=== PATIENT | female | born 1945 | race Caucasian/White ===

== ENCOUNTER → 2017-04-01 | Outpatient (CLI) | payer MEDICARE ==
[2017-04-01 18:07] LABS: Bilirubin, Urine Neg (Neg); Blood, Urine Neg (Neg); Glucose Qualitative, Urine Neg (Neg); Ketones, Urine 1+ (Neg); Leukocyte Esterase, Urine 1+ (Neg); Nitrite, Urine Neg (Neg); Protein, Urine Neg (Neg); Urobilinogen, Urine 1+ (Normal)
[2017-04-01 18:39] LABS: Appearance, Urine Hazy (Clear); Color, Urine Yellow (P-Yellow)
[2017-04-01 18:41] LABS: Bacteria Few /hpf; Calcium Oxalate Crystals Mod /hpf; Red Blood Cells, Urine Not Seen /hpf (0-2); Squamous Epithelial Cells Few /hpf (Few); White Blood Cells, Urine 0-2 /hpf (0-5)
[2017-04-01 20:47] LABS: Protein, Urine Random 15.7 mg/dL (0.0-11.9)
== END | disposition home or self-care (01) ==
LOC: LAB 09:00
PROVIDERS: Internal Medicine
DX: E55.9 Vitamin D deficiency, unspecified (principal); I12.9 Hypertensive chronic kidney disease with stage 1 through stage 4 chronic kidney disease, or unspecified chronic kidney disease; N18.3 Chronic kidney disease, stage 3 (moderate); D63.1 Anemia in chronic kidney disease
CPT/HCPCS: 81001; 82570; 84156

== ENCOUNTER 2019-02-25 20:58 | Emergency (ER) | payer MEDICARE ==
[~2019-02-25] VITALS: Ht 142.2 cm; Wt 59.0 kg
[2019-02-25 21:58] LABS: BASOPHILS ABSOLUTE AUTO 0.04 K/mm3 (0.00-0.23); BASOPHILS PERCENT AUTO 0 % (0-2); EOSINOPHILS ABSOLUTE AUTO 0.21 K/mm3 (0.00-0.68); EOSINOPHILS PERCENT AUTO 2 % (0-6); Hematocrit 39.3 % (33.0-51.0); Hemoglobin 13.1 g/dL (11.5-16.0); IMMATURE GRAN ABSOLUTE AUTO 0.03 K/mm3 (0.00-0.10); IMMATURE GRAN PERCENT AUTO 0 % (0-1); LYMPHOCYTES ABSOLUTE AUTO 2.45 K/mm3 (0.84-5.20); LYMPHOCYTES PERCENT AUTO 19 % (21-46); MONOCYTES ABSOLUTE AUTO 0.95 K/mm3 (0.16-1.47); MONOCYTES PERCENT AUTO 8 % (4-13); Mean Corpuscular HGB 32.9 pg (26.0-34.0); Mean Corpuscular HGB Conc 33.3 g/dL (31.5-36.5); Mean Corpuscular Volume 99 fL (80-100); Mean Platelet Volume 9.3 fL (9.1-12.4); NEUTROPHILS ABSOLUTE AUTO 9.07 K/mm3 (1.96-9.15); NEUTROPHILS PERCENT AUTO 71 % (41-73); Platelet Count 334 K/mm3 (150-400); RDW Coefficient Variation 14.1 % (11.7-14.2); RDW Standard Deviation 51.4 fL (35.1-46.3); Red Blood Cell Count 3.98 M/mm3 (3.80-5.20); White Blood Cell Count 12.75 K/mm3 (4.00-11.30)
[2019-02-25 22:16] LABS: Albumin, Blood 3.3 g/dL (3.4-5.0); Albumin/Globulin Ratio 0.8 (0.8-1.8); Bilirubin, Total 0.3 mg/dL (0.1-1.0); Bun/Creatinine Ratio 18.6 (12.0-20.0); Calcium, Blood 9.1 mg/dL (8.5-10.1); Creatinine, Blood 1.56 mg/dL (0.40-1.00); Globulin, Blood 4.3 g/dL (2.2-4.0); Potassium, Blood 3.7 mmol/L (3.5-5.5); Total Protein, Blood 7.6 g/dL (6.4-8.2)
[2019-02-25 22:41] LABS: Magnesium, Blood 2.2 mg/dL (1.6-2.4); Troponin I 0.052 ng/mL (0.000-0.040)
[2019-02-25] MEDS ORDERED: BUMETANIDE TAB 1MG (23:07)
[2019-02-25] MEDS ORDERED: CARVEDILOL6.25 MG PO (23:07)
[2019-02-25] MEDS ORDERED: FERSU300 (23:07)
[2019-02-25] MEDS ORDERED: Spironolactone25 MG PO (23:07)
[2019-02-25] MEDS ORDERED: WARF1 PO (23:07)
[2019-02-25] MEDS ORDERED: Simvastatin40 MG PO (23:07)
[2019-02-25 23:09] LABS: Source, Urine Clean Catch
[2019-02-25 23:16] LABS: Bilirubin, Urine Neg (Neg); Blood, Urine Neg (Neg); Glucose Qualitative, Urine Neg (Neg); Ketones, Urine Neg (Neg); Leukocyte Esterase, Urine 1+ (Neg); Nitrite, Urine Neg (Neg); Protein, Urine Neg (Neg); Urobilinogen, Urine NORM (Normal)
[2019-02-25 23:23] LABS: Appearance, Urine Clear (Clear); Color, Urine Yellow (P-Yellow)
[2019-02-25 23:24] LABS: Bacteria Rare /hpf; Red Blood Cells, Urine Not Seen /hpf (0-2); Squamous Epithelial Cells Few /hpf (Few); White Blood Cells, Urine 0-2 /hpf (0-5)
== END 2019-02-26 01:34 | disposition home or self-care (01) ==
LOC: ER 20:58
PROVIDERS: Emergency Medicine; Physician Assistant
DX: M54.5 Low back pain (principal); M25.552 Pain in left hip; M25.551 Pain in right hip; R07.81 Pleurodynia; I50.9 Heart failure, unspecified; N18.3 Chronic kidney disease, stage 3 (moderate); Z79.899 Other long term (current) drug therapy
CPT/HCPCS: 36415; 71045; 73502; 80053; 81001; 83605; 83735; 83880; 84484; 85025; 87086; 93005; 93010; 99284-25; A9270

== ENCOUNTER 2019-03-26 08:22 | Emergency (ER) | payer MEDICARE ==
[~2019-03-26] VITALS: Ht 144.8 cm; Wt 59.0 kg
[~2019-03-26 08:22] MED LIST: BUMETANIDE TAB 1MG; CARVEDILOL6.25 MG PO; FERSU300; Simvastatin40 MG PO; Spironolactone25 MG PO; WARF1 PO
[2019-03-26 09:04] LABS: BASOPHILS ABSOLUTE AUTO 0.06 K/mm3 (0.00-0.23); BASOPHILS PERCENT AUTO 1 % (0-2); EOSINOPHILS ABSOLUTE AUTO 0.33 K/mm3 (0.00-0.68); EOSINOPHILS PERCENT AUTO 3 % (0-6); Hemoglobin 11.2 g/dL (11.5-16.0); IMMATURE GRAN ABSOLUTE AUTO 0.06 K/mm3 (0.00-0.10); IMMATURE GRAN PERCENT AUTO 1 % (0-1); LYMPHOCYTES ABSOLUTE AUTO 2.57 K/mm3 (0.84-5.20); LYMPHOCYTES PERCENT AUTO 20 % (21-46); MONOCYTES ABSOLUTE AUTO 0.83 K/mm3 (0.16-1.47); MONOCYTES PERCENT AUTO 6 % (4-13); Mean Corpuscular HGB 32.1 pg (26.0-34.0); Mean Corpuscular Volume 100 fL (80-100); NEUTROPHILS ABSOLUTE AUTO 9.02 K/mm3 (1.96-9.15); NEUTROPHILS PERCENT AUTO 70 % (41-73); Platelet Count 473 K/mm3 (150-400); RDW Coefficient Variation 15.1 % (11.7-14.2); RDW Standard Deviation 55.4 fL (35.1-46.3); Red Blood Cell Count 3.49 M/mm3 (3.80-5.20); White Blood Cell Count 12.87 K/mm3 (4.00-11.30)
[2019-03-26 09:54] LABS: Prothrombin Time Results >90.0 Sec (9.7-11.5)
[2019-03-26 09:56] LABS: International Normalized Ratio No Calc
== END 2019-03-26 10:27 | disposition home or self-care (01) ==
LOC: ER 08:22
PROVIDERS: Emergency Medicine
DX: R79.1 Abnormal coagulation profile (principal); T45.515A Adverse effect of anticoagulants, initial encounter; N18.3 Chronic kidney disease, stage 3 (moderate); I50.9 Heart failure, unspecified; F17.210 Nicotine dependence, cigarettes, uncomplicated; Z86.73 Personal history of transient ischemic attack (TIA), and cerebral infarction without residual deficits
CPT/HCPCS: 36415; 85025; 85610; 99283

== ENCOUNTER 2019-06-03 16:48 | Observation (INO) | payer MEDICARE ==
[~2019-06-03] VITALS: Ht 152.4 cm; Wt 56.0 kg
[~2019-06-03 16:48] MED LIST changes: -FERSU300; +FERSU300 PO
[2019-06-03 17:37] LABS: BASOPHILS ABSOLUTE AUTO 0.07 K/mm3 (0.00-0.23); BASOPHILS PERCENT AUTO 1 % (0-2); EOSINOPHILS PERCENT AUTO 2 % (0-6); Hematocrit 35.3 % (33.0-51.0); IMMATURE GRAN ABSOLUTE AUTO 0.02 K/mm3 (0.00-0.10); IMMATURE GRAN PERCENT AUTO 0 % (0-1); LYMPHOCYTES ABSOLUTE AUTO 1.57 K/mm3 (0.84-5.20); LYMPHOCYTES PERCENT AUTO 17 % (21-46); MONOCYTES ABSOLUTE AUTO 0.84 K/mm3 (0.16-1.47); MONOCYTES PERCENT AUTO 9 % (4-13); Mean Corpuscular HGB 32.5 pg (26.0-34.0); Mean Corpuscular HGB Conc 31.2 g/dL (31.5-36.5); Mean Corpuscular Volume 104 fL (80-100); Mean Platelet Volume 9.3 fL (9.1-12.4); NEUTROPHILS ABSOLUTE AUTO 6.42 K/mm3 (1.96-9.15); NEUTROPHILS PERCENT AUTO 70 % (41-73); Platelet Count 412 K/mm3 (150-400); RDW Coefficient Variation 15.6 % (11.7-14.2); RDW Standard Deviation 60.7 fL (35.1-46.3); Red Blood Cell Count 3.38 M/mm3 (3.80-5.20); White Blood Cell Count 9.12 K/mm3 (4.00-11.30)
[2019-06-03 17:56] LABS: Albumin, Blood 2.5 g/dL (3.4-5.0); Albumin/Globulin Ratio 0.6 (0.8-1.8); Bilirubin, Total 0.2 mg/dL (0.1-1.0); Bun/Creatinine Ratio 17.5 (12.0-20.0); Calcium, Blood 9.6 mg/dL (8.5-10.1); Creatinine, Blood 1.2 mg/dL (0.40-1.00); Globulin, Blood 3.9 g/dL (2.2-4.0); Potassium, Blood 5.1 mmol/L (3.5-5.5); Total Protein, Blood 6.4 g/dL (6.4-8.2); Troponin I 0.088 ng/mL (0.000-0.040)
[2019-06-03] MEDS ORDERED: Bumetanide1 MG PO (18:24)
[2019-06-03 19:15] LABS: International Normalized Ratio 0.93
[2019-06-03] MEDS ORDERED: ASCO500 PO (22:16)
--- NOTE | 2019-06-03 22:19 | NUR ---
ADMISSION: PATIENT IS RECIEVED FROM ER VIA STRETCHER. REPORTING LEFT RIB PAIN 3/10 AT REST. HEPARIN GTT IS INFUSING AT 12 ML/HR. PATIENT AND FAMILY ARE ORIENTED TO ROOM AND CALL PEREZ.
[2019-06-04 03:03] LABS: Hematocrit 31.5 % (33.0-51.0); Hemoglobin 9.9 g/dL (11.5-16.0); Mean Corpuscular HGB 32.6 pg (26.0-34.0); Mean Corpuscular HGB Conc 31.4 g/dL (31.5-36.5); Mean Corpuscular Volume 104 fL (80-100); Mean Platelet Volume 9.1 fL (9.1-12.4); Platelet Count 364 K/mm3 (150-400); RDW Coefficient Variation 15.6 % (11.7-14.2); RDW Standard Deviation 60.1 fL (35.1-46.3); Red Blood Cell Count 3.04 M/mm3 (3.80-5.20); White Blood Cell Count 9.79 K/mm3 (4.00-11.30)
[2019-06-04 03:22] LABS: Bun/Creatinine Ratio 19.5 (12.0-20.0); Calcium, Blood 8.7 mg/dL (8.5-10.1); Creatinine, Blood 1.13 mg/dL (0.40-1.00); Potassium, Blood 4.3 mmol/L (3.5-5.5); Troponin I 0.079 ng/mL (0.000-0.040)
--- NOTE | 2019-06-04 04:53 | NUR ---
SHIFT SUMMARY: PATIENT IS A&OX4, O2 SAT DROPS TO 90 % ON RA WHEN SLEEPING, 2L NC IS APPLIED. PATIENT REPORTS LEFT RIB PAIN 7/10 WITH MOVEMENT, 3/10 AT REST. TYLENOL AND TRAMADOL ARE ALTERNATED WITH GOOD EFFECT. HEPARIN GTT IS BEING MANAGED BY PHARMACY. HEPARIN BOLUS WAS GIVEN PER PHARMACY ORDER, SEE MAY. NEXT APTT IS TIMED FOR 1100. PATIENT HAS NO REPORTS OF CHEST PAIN, ONLY RIB PAIN.
[2019-06-04] MEDS ORDERED: ASPI325EC PO (13:09)
[2019-06-04] MEDS ORDERED: ACET325 PO (13:09)
[2019-06-04] MEDS ORDERED: Norco 5-325 Ta1 EACH PO (13:10)
[2019-06-04] MEDS ORDERED: TRAM50 PO (13:11)
--- NOTE | 2019-06-04 17:33 | NUR ---
PT DISCHARGED, AWAITING RIDE AT 1500 LEFT THE UNIT AT 1720. IV REMOVED. HARD PRESCREPTIONS SENT HOME. DISCHARGE INSTRUCTIONS REVIEWED.
== END 2019-06-04 17:15 | disposition home or self-care (01) ==
LOC: ER 16:48 → MEDS 16:49 → ERHOLD 16:49 → MEDS 21:52
PROVIDERS: Emergency Medicine; Internal Medicine; ADMIT Family Medicine
DX: S22.42XA Multiple fractures of ribs, left side, initial encounter for closed fracture (principal); R79.89 Other specified abnormal findings of blood chemistry; N18.3 Chronic kidney disease, stage 3 (moderate); I50.9 Heart failure, unspecified; F17.210 Nicotine dependence, cigarettes, uncomplicated; Z66 Do not resuscitate; R54 Age-related physical debility; E78.00 Pure hypercholesterolemia, unspecified; Z86.73 Personal history of transient ischemic attack (TIA), and cerebral infarction without residual deficits; Z79.899 Other long term (current) drug therapy; X58.XXXA Exposure to other specified factors, initial encounter
CPT/HCPCS: 36415; 71046; 80048; 80053; 82947; 83880; 84484; 85025; 85027; 85610; 85730; 93005; 93010; 93306; 96374; 99285-25; A9270; A9270-GY; J1644

== ENCOUNTER 2019-12-24 20:46 | Inpatient (IN) | payer MEDICARE ==
[~2019-12-24] VITALS: Ht 144.8 cm; Wt 53.8 kg
[~2019-12-24 20:46] MED LIST changes: +ACET325 PO; +AMOCLA875 PO; +ASCO500 PO; +ASPI325EC PO; +AZIT250 PO; +Bumetanide1 MG PO; +Klor-Con 1010 MEQ PO; +Norco 5-325 Ta1 EACH PO; +TRAM50 PO
[2019-12-24 21:05] LABS: BASOPHILS ABSOLUTE AUTO 0.07 K/mm3 (0.00-0.23); BASOPHILS PERCENT AUTO 1 % (0-2); EOSINOPHILS ABSOLUTE AUTO 0.34 K/mm3 (0.00-0.68); EOSINOPHILS PERCENT AUTO 3 % (0-6); Hematocrit 38.6 % (33.0-51.0); Hemoglobin 12.2 g/dL (11.5-16.0); IMMATURE GRAN ABSOLUTE AUTO 0.03 K/mm3 (0.00-0.10); IMMATURE GRAN PERCENT AUTO 0 % (0-1); LYMPHOCYTES ABSOLUTE AUTO 2.85 K/mm3 (0.84-5.20); LYMPHOCYTES PERCENT AUTO 25 % (21-46); MONOCYTES ABSOLUTE AUTO 0.95 K/mm3 (0.16-1.47); MONOCYTES PERCENT AUTO 8 % (4-13); Mean Corpuscular HGB 31.4 pg (26.0-34.0); Mean Corpuscular HGB Conc 31.6 g/dL (31.5-36.5); Mean Corpuscular Volume 99 fL (80-100); Mean Platelet Volume 9.1 fL (9.1-12.4); NEUTROPHILS ABSOLUTE AUTO 7.17 K/mm3 (1.96-9.15); NEUTROPHILS PERCENT AUTO 63 % (41-73); Platelet Count 338 K/mm3 (150-400); RDW Coefficient Variation 13.5 % (11.7-14.2); RDW Standard Deviation 49.5 fL (35.1-46.3); Red Blood Cell Count 3.89 M/mm3 (3.80-5.20); White Blood Cell Count 11.41 K/mm3 (4.00-11.30)
[2019-12-24 21:20] LABS: Albumin, Blood 3.1 g/dL (3.4-5.0); Albumin/Globulin Ratio 0.7 (0.8-1.8); Bilirubin, Total 0.2 mg/dL (0.1-1.0); Bun/Creatinine Ratio 21.4 (12.0-20.0); Calcium, Blood 8.8 mg/dL (8.5-10.1); Creatinine, Blood 1.26 mg/dL (0.40-1.00); Globulin, Blood 4.2 g/dL (2.2-4.0); Potassium, Blood 4.4 mmol/L (3.5-5.5); Total Protein, Blood 7.3 g/dL (6.4-8.2); Troponin I 0.075 ng/mL (0.000-0.040)
[2019-12-24 22:23] LABS: International Normalized Ratio 0.95; Prothrombin Time Results 10.2 Sec (9.7-11.5)
--- NOTE | 2019-12-25 05:23 | NUR ---
SHIFT SUMMARY PT NEW ED ADMIT THIS EVENING. CONTINUED TO HAVE LEFT PLEURITIC PAIN, DENIED ANY NEED FOR PAIN MEDICATION. HEPARIN DRIP INFUSING. PT DOES BECOME EASILY SOB. LUNG SOUNDS COARSE. PRODUCTIVE COUGH AT TIMES. PT IS EVERY DAY SMOKER. ON 3 L O2 NC. PT WEARS 2 L CONTINUOUSLY AT BASELINE. PT APPEARS UNKEMPT. PT DID NOT FALL ASLEEP UNTIL LATER IN THE EVENING BUT APPEARED TO SLEEP WELL AFTER. VITAL SIGNS STABLE. WILL CONTINUE TO MONITOR AND REPORT TO DAY RN.
[2019-12-25 08:28] LABS: BASOPHILS ABSOLUTE AUTO 0.07 K/mm3 (0.00-0.23); BASOPHILS PERCENT AUTO 1 % (0-2); EOSINOPHILS ABSOLUTE AUTO 0.37 K/mm3 (0.00-0.68); EOSINOPHILS PERCENT AUTO 3 % (0-6); Hematocrit 40.2 % (33.0-51.0); Hemoglobin 12.8 g/dL (11.5-16.0); IMMATURE GRAN ABSOLUTE AUTO 0.06 K/mm3 (0.00-0.10); IMMATURE GRAN PERCENT AUTO 1 % (0-1); LYMPHOCYTES ABSOLUTE AUTO 3.38 K/mm3 (0.84-5.20); LYMPHOCYTES PERCENT AUTO 26 % (21-46); MONOCYTES ABSOLUTE AUTO 0.79 K/mm3 (0.16-1.47); MONOCYTES PERCENT AUTO 6 % (4-13); Mean Corpuscular HGB 31.3 pg (26.0-34.0); Mean Corpuscular HGB Conc 31.8 g/dL (31.5-36.5); Mean Corpuscular Volume 98 fL (80-100); Mean Platelet Volume 9.1 fL (9.1-12.4); NEUTROPHILS ABSOLUTE AUTO 8.11 K/mm3 (1.96-9.15); NEUTROPHILS PERCENT AUTO 64 % (41-73); Platelet Count 354 K/mm3 (150-400); RDW Coefficient Variation 13.8 % (11.7-14.2); RDW Standard Deviation 49.9 fL (35.1-46.3); Red Blood Cell Count 4.09 M/mm3 (3.80-5.20); White Blood Cell Count 12.78 K/mm3 (4.00-11.30)
[2019-12-25 08:47] LABS: Albumin, Blood 3.5 g/dL (3.4-5.0); Albumin/Globulin Ratio 0.8 (0.8-1.8); Bilirubin, Total 0.4 mg/dL (0.1-1.0); Bun/Creatinine Ratio 22.6 (12.0-20.0); Calcium, Blood 10.1 mg/dL (8.5-10.1); Creatinine, Blood 1.15 mg/dL (0.40-1.00); Globulin, Blood 4.6 g/dL (2.2-4.0); Potassium, Blood 4.1 mmol/L (3.5-5.5); Total Protein, Blood 8.1 g/dL (6.4-8.2)
[2019-12-25 08:49] LABS: CPK Creatine Kinase 75 U/L (26-193)
[2019-12-25 14:28] LABS: CPK Creatine Kinase 66 U/L (26-193)
--- NOTE | 2019-12-25 18:42 | NUR ---
SHIFT SUMMARY PT REPORTS SHORTNESS OF BREATH WITH ACTIVITY AND STATES PAIN TO LEFT SIDE OF CHEST THAT GOES UP AND DOWN THE CHEST WALL. HEPARIN DC/D PER MD ORDER FOR NO PE IN VQ SCAN. BECAME TEARFUL THIS MORNING WHEN SPEAKING ABOUT HER CHILDREN SAYING THEY WON'T CALL BECAUSE THEY DON'T CARE. FAMILY WAS CALLING JUST PT WAS SAYING THAT. HAS BEEN A BIT WITHDRAWN THROUGH THE DAY OTHERWISE.
--- NOTE | 2019-12-25 21:34 | NUR ---
Patient slept deeply after returning from CT. Wakes easily and is alert and appropriate. Finally requested dinner just after 2100, and within 20 minutes of starting to eat, patient developed stabbing lower epigastric pain. Initially declined Maalox+, but will recheck and see if she would be ammenable to trying it. continuing close monitoring.
[2019-12-26 04:43] LABS: BASOPHILS ABSOLUTE AUTO 0.06 K/mm3 (0.00-0.23); BASOPHILS PERCENT AUTO 0 % (0-2); EOSINOPHILS ABSOLUTE AUTO 0.42 K/mm3 (0.00-0.68); EOSINOPHILS PERCENT AUTO 3 % (0-6); Hematocrit 36.1 % (33.0-51.0); Hemoglobin 11.5 g/dL (11.5-16.0); IMMATURE GRAN ABSOLUTE AUTO 0.05 K/mm3 (0.00-0.10); IMMATURE GRAN PERCENT AUTO 0 % (0-1); LYMPHOCYTES ABSOLUTE AUTO 2.95 K/mm3 (0.84-5.20); LYMPHOCYTES PERCENT AUTO 22 % (21-46); MONOCYTES ABSOLUTE AUTO 1.02 K/mm3 (0.16-1.47); MONOCYTES PERCENT AUTO 8 % (4-13); Mean Corpuscular HGB 31.3 pg (26.0-34.0); Mean Corpuscular HGB Conc 31.9 g/dL (31.5-36.5); Mean Corpuscular Volume 98 fL (80-100); Mean Platelet Volume 9.8 fL (9.1-12.4); NEUTROPHILS ABSOLUTE AUTO 8.94 K/mm3 (1.96-9.15); NEUTROPHILS PERCENT AUTO 67 % (41-73); Platelet Count 322 K/mm3 (150-400); RDW Coefficient Variation 13.6 % (11.7-14.2); Red Blood Cell Count 3.67 M/mm3 (3.80-5.20); White Blood Cell Count 13.44 K/mm3 (4.00-11.30)
[2019-12-26 05:17] LABS: Albumin/Globulin Ratio 0.7 (0.8-1.8); Bilirubin, Total 0.3 mg/dL (0.1-1.0); Bun/Creatinine Ratio 29.3 (12.0-20.0); Calcium, Blood 9.3 mg/dL (8.5-10.1); Creatinine, Blood 1.23 mg/dL (0.40-1.00); Globulin, Blood 4.1 g/dL (2.2-4.0); Potassium, Blood 4.4 mmol/L (3.5-5.5); Total Protein, Blood 7.1 g/dL (6.4-8.2)
--- NOTE | 2019-12-26 06:40 | NUR ---
SET UP MECHANIC CROWN ASSEMBLY MACHINE SUMMARY Patient had rather severe episode of sharp epigastric pains approx 15 minutes into her dinner. Miracle mouthwash given for relief and patient was able to sleep well between episodes of incontinence,
--- NOTE | 2019-12-26 14:00 | NUR ---
PT BEING PICKED UP TO BE TAKEN TO OR FOR LAP IDALIA. HAS BEEN NPO SINCE SHIFT CHANGE THIS MORNING AT LEAST. REPORTS NO DRINKING FOR SEVERAL HOURS PRIOR TO SHIFT CHANGE. LOVENOX HELD WELL PRIOR TO IT BEING D/CD IN POSSIBILITY OF SURGERY. INCONTINENT OF URINE. DAUGHTER IN LAW RAVINDRA CALLED TODAY AND GIVEN UPDATE ON PT CONDITION AND PLANS FOR SURGERY. PT AWARE OF UPCOOMING EVENTS. TO OR.
--- NOTE | 2019-12-26 15:30 | NUR ---
REPORT CALLED TO AMA [place] IN ICU FOR PT TRANSFERING TO ROOM ICU15 FROM SURGERY.
--- NOTE | 2019-12-26 17:02 | NUR ---
PT TO BED 15 FROM SURGERY@1630. PT ON 100%NRB, DYSPNEIC AND SPO2 HIGH 80'S. ORAL SUCTION PT. THICK SECRETIONS. PT PLACED ON BIPAP, SPO2 INCREASED TO 94%, PT. LESS SOB AND DYSPNEA. CONTACTED DR. PICKARD, ORDERS RECEIVED TO CONSULT DR. LOYOLA. SPOKE WITH DR. LOYOLA, INFORMED HIM OF PT. STATUS. DR. LOYOLA WILL BE IN TO SEE PT.
--- NOTE | 2019-12-26 19:00 | NUR ---
ASSUMED CARE OF PT SHE IS RESTING QUIETLY POSITIONED ON LEFT SIDE, SATS MAINTAINING 98-99% WITH BIPAP 12/8 FIO2 60% PT DENIES PAIN, DENIES NEEDS AT THIS TIME, STATES THAT BREATHING IS MUCH IMPROVED WITH BIPAP USE. PRESSURE MAINTAINING STABLE, WILL MONITOR.
--- NOTE | 2019-12-26 19:02 | NUR ---
DR LOYOLA IN TO SEE PT AROUND 1800. CHEST XRAY COMPLETED. BIPAP SETTINGS CHANGED TO 12/8 W FIO2 AT 60% PER DR LOYOLA. PT AROUSES TO VOICE AND IS STARTING TO FOLLOW DIRECTIONS; BECOMING MORE APPROPRIATE/MORE ORIENTED. PT REMAINS IN RESTRAINTS SHE AWAKENS AND REACHES TO REMOVE BIPAP. VSS.
[2019-12-27 03:37] LABS: BASOPHILS ABSOLUTE AUTO 0.01 K/mm3 (0.00-0.23); BASOPHILS PERCENT AUTO 0 % (0-2); EOSINOPHILS PERCENT AUTO 0 % (0-6); Hematocrit 34.8 % (33.0-51.0); Hemoglobin 10.9 g/dL (11.5-16.0); IMMATURE GRAN ABSOLUTE AUTO 0.06 K/mm3 (0.00-0.10); IMMATURE GRAN PERCENT AUTO 1 % (0-1); LYMPHOCYTES ABSOLUTE AUTO 0.94 K/mm3 (0.84-5.20); LYMPHOCYTES PERCENT AUTO 7 % (21-46); MONOCYTES ABSOLUTE AUTO 0.21 K/mm3 (0.16-1.47); MONOCYTES PERCENT AUTO 2 % (4-13); Mean Corpuscular HGB 31.2 pg (26.0-34.0); Mean Corpuscular HGB Conc 31.3 g/dL (31.5-36.5); Mean Corpuscular Volume 100 fL (80-100); Mean Platelet Volume 9.4 fL (9.1-12.4); NEUTROPHILS ABSOLUTE AUTO 12.11 K/mm3 (1.96-9.15); NEUTROPHILS PERCENT AUTO 91 % (41-73); Platelet Count 308 K/mm3 (150-400); RDW Coefficient Variation 13.7 % (11.7-14.2); RDW Standard Deviation 50.2 fL (35.1-46.3); Red Blood Cell Count 3.49 M/mm3 (3.80-5.20); White Blood Cell Count 13.33 K/mm3 (4.00-11.30)
[2019-12-27 03:55] LABS: Alanine Aminotransfer (ALT/SGP 46 U/L (12-78); Albumin, Blood 2.8 g/dL (3.4-5.0); Albumin/Globulin Ratio 0.7 (0.8-1.8); Alk Phos 116 U/L (50-136); Anion Gap 6 mmol/L (6-16); Aspartate Aminotrans (AST/SGOT 58 U/L (12-37); Bilirubin, Direct <0.1 mg/dL (0.0-0.3); Bilirubin, Indirect Unable to Calculate mg/dL (0.1-0.7); Bilirubin, Total 0.3 mg/dL (0.1-1.0); Blood Urea Nitrogen 31 mg/dL (8-24); Bun/Creatinine Ratio 24.6 (12.0-20.0); CO2, Blood 28 mmol/L (21-32); Calcium, Blood 9.2 mg/dL (8.5-10.1); Chloride, Blood 103 mmol/L (98-108); Creatinine, Blood 1.26 mg/dL (0.40-1.00); Globulin, Blood 4.1 g/dL (2.2-4.0); Glomerular Filtration Rate 44 (60-); Glucose, Blood 135 mg/dL (70-99); Sodium, Blood 137 mmol/L (136-145); Total Protein, Blood 6.9 g/dL (6.4-8.2)
--- NOTE | 2019-12-27 06:15 | NUR ---
PT RESTS QUIETLY THROUGHOUT SHIFT, DENIES PAIN AND NAUSEA THROUGHOUT SHIFT, STATES THAT "IT DOESN'T HURT TO ROLL OVER ANYMORE" INITIALLY ON BIPAP 03/07 WITH FIO2 60%, THIS WAS TITRATED DOWN TO 45% PRIOR TO PT REQUESTING BIPAP TO BE TAKEN OFF AFTER WHICH SHE HAS MAINTAINED HER SATS WITH OXYGEN VIA NASAL CANNULA FIRST AT 4 L/MIN AND NOW AT 3 L/MIN. LUNGS REMAIN COARSE IN BASES HOWEVER CLEAR WITH COUGH, SPUTUM BROWN AND THICK. HRR, SINUS/SINUS BRADYCARDIA THIS SHIFT, PRESSURES STABLE. DRESSINGS TO ABD REMAIN CDI, PT HAS TOLERATED SIPS OF WATER WITH MEDS.
--- NOTE | 2019-12-27 11:46 | NUR ---
CARE ASSUMED ASSESSMENT COMPLETED, VSS. DRESSINGS TO ABD INTACT, SCANT SHADOWING ON LOWER MID ABD DRESSING. ABD SLIGHTLY DISTENDED, BT PRESENT IN ALL QUADRANTS, PT REPORTS TENDERNESS ONLY WITH PALPATION, DENIES PAIN WHEN MOVING IN BED. TOLERATED BREAKFAST WITHOUT DIFFICULTY, APPETITE GOOD, NO NAUSEA FOLLOWING MEAL. O2 3L/NC, WILL ATTEMPT TO TITRATE TO HOME DOSE OF 2L/NC ABLE. LS COARSE IN BASES, PT DENIES SOB AT REST. WILL CONTINUE TO MONITOR. RADHA KEYS AND ANDRE IN TO SEE PATIENT, PT NOW SURGICAL STATUS.
--- NOTE | 2019-12-27 16:53 | NUR ---
DISCHARGE NOTE PT HAD UNEVENTFUL AFTERNOON, DENIED C/O PAIN OR ABD DISCOMFORT, BT ACTIVE. TOLERATING MEALS WELL, BACK TO BASELINE O2 OF 2L/NC, SPO2 MID 90'S. COUGH CONTINUES, SPUTUM CLEAR, THIN. LS WITH FINE WHEEZES, PT DENIES SOB AT REST. BP'S SLIGHTLY LOW WHEN SLEEPING, MAPS >60. DC ORDERS RECEIVED, IV'S DC'D WITH TIPS INTACT, PRESSURE DRESSINGS APPLIED. DRESSINGS TO ABD REMAIN UNCHANGED. PT'S SON AT BEDSIDE, DC, F/U, AND MED INSTRUTIONS GIVEN, PT AND SON VERBALIZE UNDERSTANDING. PT ASSISTED TO DRESS, DC'D TO HOME WITH SON WITH BELONGINGS AND DC INSTRUCTIONS. ASSISTED TO CAR VIA WC BY STAFF.
[2019-12-29] MEDS ORDERED: ACET325 PO (18:20)
[2019-12-29] MEDS ORDERED: ASCO500 PO (18:21)
[2019-12-29] MEDS ORDERED: BUME1 PO (18:23)
[2019-12-29] MEDS ORDERED: CARV6.25 PO (18:24)
[2019-12-29] MEDS ORDERED: FEROSUL325 M1 PO (18:25)
[2019-12-29] MEDS ORDERED: Simvastatin20 MG PO (18:26)
[2019-12-29] MEDS ORDERED: ALDACTONE25 MG PO (18:27)
[2019-12-30] MEDS ORDERED: AZIT500 PO (14:49)
[2019-12-30] MEDS ORDERED: TIOT18 INH (14:50)
[2019-12-30] MEDS ORDERED: SYMBICORT 80-10.2 GM INH (14:50)
[2019-12-30] MEDS ORDERED: Prednisone10 MG PO (14:52)
== END 2019-12-27 16:05 | disposition home or self-care (01) | DRG 418 ==
LOC: ER 20:46 → MEDS 20:47 → ICUW 12-26 15:22
PROVIDERS: Emergency Medicine; Internal Medicine Endocrinology, Diabetes & Metabolism; Surgery; ADMIT Internal Medicine
PROC: BF131ZZ Fluoroscopy of Gallbladder and Bile Ducts using Low Osmolar Contrast (ICD-10-PCS; 2019-12-26)
PROC: 5A09357 Assistance with Respiratory Ventilation, Less than 24 Consecutive Hours, Continuous Positive Airway Pressure (ICD-10-PCS; 2019-12-26)
PROC: 0FT44ZZ Resection of Gallbladder, Percutaneous Endoscopic Approach (ICD-10-PCS; principal; 2019-12-26 15:45)
DX: K80.00 Calculus of gallbladder with acute cholecystitis without obstruction (principal); I50.32 Chronic diastolic (congestive) heart failure; J96.11 Chronic respiratory failure with hypoxia; N25.81 Secondary hyperparathyroidism of renal origin; Z79.82 Long term (current) use of aspirin; F17.210 Nicotine dependence, cigarettes, uncomplicated; N18.3 Chronic kidney disease, stage 3 (moderate); Z99.81 Dependence on supplemental oxygen; J44.9 Chronic obstructive pulmonary disease, unspecified; Z66 Do not resuscitate; I12.9 Hypertensive chronic kidney disease with stage 1 through stage 4 chronic kidney disease, or unspecified chronic kidney disease
CPT/HCPCS: 36415; 71045; 71046; 74300; 76705; 78580; 80053; 82248; 82550; 83880; 84484; 85025; 85379; 85610; 85730; 88304; 93005; 93010; 94640; 94660; 96365; 96372-59; 99285-25; A9270; A9540; C1729; G0378; J0690; J1100; J1644; J1650; J2370; J2405; J2704; J3010; J7120; U0003

== ENCOUNTER 2019-12-31 06:46 | Inpatient (IN) | payer MEDICARE, OTHER ==
[~2019-12-31] VITALS: Ht 154.9 cm; Wt 74.8 kg
[~2019-12-31 06:46] MED LIST changes: +ALDACTONE25 MG PO; +AZIT500 PO; +BUME1 PO; +CARV6.25 PO; +FEROSUL325 M1 PO; +Prednisone10 MG PO; +SYMBICORT 80-10.2 GM INH; +Simvastatin20 MG PO; +TIOT18 INH
[2019-12-31 08:09] LABS: BASOPHILS ABSOLUTE AUTO 0.03 K/mm3 (0.00-0.23); BASOPHILS PERCENT AUTO 0 % (0-2); EOSINOPHILS ABSOLUTE AUTO 0.02 K/mm3 (0.00-0.68); EOSINOPHILS PERCENT AUTO 0 % (0-6); Hematocrit 38.3 % (33.0-51.0); Hemoglobin 12.3 g/dL (11.5-16.0); IMMATURE GRAN ABSOLUTE AUTO 0.08 K/mm3 (0.00-0.10); IMMATURE GRAN PERCENT AUTO 0 % (0-1); LYMPHOCYTES ABSOLUTE AUTO 1.74 K/mm3 (0.84-5.20); LYMPHOCYTES PERCENT AUTO 8 % (21-46); MONOCYTES ABSOLUTE AUTO 1.25 K/mm3 (0.16-1.47); MONOCYTES PERCENT AUTO 6 % (4-13); Mean Corpuscular HGB 31.5 pg (26.0-34.0); Mean Corpuscular HGB Conc 32.1 g/dL (31.5-36.5); Mean Corpuscular Volume 98 fL (80-100); Mean Platelet Volume 9.4 fL (9.1-12.4); NEUTROPHILS ABSOLUTE AUTO 17.83 K/mm3 (1.96-9.15); NEUTROPHILS PERCENT AUTO 85 % (41-73); Platelet Count 451 K/mm3 (150-400); RDW Coefficient Variation 14.3 % (11.7-14.2); RDW Standard Deviation 51.3 fL (35.1-46.3); Red Blood Cell Count 3.91 M/mm3 (3.80-5.20); White Blood Cell Count 20.95 K/mm3 (4.00-11.30)
[2019-12-31 08:42] LABS: PCO2 Arterial 41.8 mmHg (35-45); PO2 Arterial 68.2 mmHg (80-100); pH Blood Arterial 7.48 (7.35-7.45)
[2019-12-31 08:45] LABS: Albumin, Blood 3.2 g/dL (3.4-5.0); Albumin/Globulin Ratio 0.7 (0.8-1.8); Bilirubin, Total 0.4 mg/dL (0.1-1.0); Bun/Creatinine Ratio 31.8 (12.0-20.0); Calcium, Blood 10.1 mg/dL (8.5-10.1); Creatinine, Blood 1.29 mg/dL (0.40-1.00); Globulin, Blood 4.7 g/dL (2.2-4.0); Total Protein, Blood 7.9 g/dL (6.4-8.2)
[2019-12-31] MEDS ORDERED: OXYC5 PO (17:19)
--- NOTE | 2019-12-31 18:15 | NUR ---
SHIFT SUMMARY- PT IS A/O, PLESANT AND COOPERATIVE. SHE ARRIVED TO THIS UNIT FROM THE ED THIS MORNING. SHE HAD A COVID TEST PREFORMED WHICH WAS NEGATIVE. HER APPETITE IS POOR. SHE SLEPT FOR MUCH OF THIS SHIFT. SHE IS WORKING WITH RT AND RECIEVED A BREATHING TREATMENT. SHE IS INCONTINENT AND REQUIRES MAX ASSISTANCE FOR CHANGING.
--- NOTE | 2020-01-01 04:54 | NUR ---
SHIFT SUMMARY ADMITTED FOR LLL PNEUMONIA. FULL CODE. PT'S FAMILY CALLED AND INFORMED ME THAT THE PT'S O2 CONCENTRATOR IS REPAIRED AND FUNCTIONAL. I AM ATTEMPTING TO TITRATE DOWN THE PT'S O2 TO HER BASELINE OF 2 LPM, SHE IS ON 4 LPM HERE (NOW 3 LPM). SHE LIVES W/HER SON AND DAUGHTER IN LAW. HE LEFT KNEE CAUSES HER SOME PAIN EVER SINCE SHE FELL AT HOME. SHE IS HOPEFUL FOR DC TODAY.
--- NOTE | 2020-01-01 18:30 | NUR ---
PT SAYS SHE IS STARTING TO FEEL BETTER, STILL SOB WITH ANY EXERTION. WAS ABLE TO WORK WITH PT TODAY, SAT ON EOB WITH ASSISTANCE. NO ACUTE CHANGES NOTED THIS SHIFT, WILL CONTINUE TO MONITOR AND REPORT TO ONCOMING RN
[2020-01-02 04:32] LABS: BASOPHILS ABSOLUTE AUTO 0.01 K/mm3 (0.00-0.23); BASOPHILS PERCENT AUTO 0 % (0-2); EOSINOPHILS ABSOLUTE AUTO 0.08 K/mm3 (0.00-0.68); EOSINOPHILS PERCENT AUTO 1 % (0-6); Hematocrit 34.1 % (33.0-51.0); Hemoglobin 10.9 g/dL (11.5-16.0); IMMATURE GRAN ABSOLUTE AUTO 0.11 K/mm3 (0.00-0.10); IMMATURE GRAN PERCENT AUTO 1 % (0-1); LYMPHOCYTES ABSOLUTE AUTO 2.85 K/mm3 (0.84-5.20); LYMPHOCYTES PERCENT AUTO 17 % (21-46); MONOCYTES ABSOLUTE AUTO 1.46 K/mm3 (0.16-1.47); MONOCYTES PERCENT AUTO 9 % (4-13); Mean Corpuscular HGB 31.5 pg (26.0-34.0); Mean Corpuscular Volume 99 fL (80-100); Mean Platelet Volume 9.3 fL (9.1-12.4); NEUTROPHILS PERCENT AUTO 74 % (41-73); Platelet Count 420 K/mm3 (150-400); RDW Standard Deviation 50.7 fL (35.1-46.3); Red Blood Cell Count 3.46 M/mm3 (3.80-5.20); White Blood Cell Count 17.21 K/mm3 (4.00-11.30)
[2020-01-02 04:49] LABS: Albumin, Blood 2.6 g/dL (3.4-5.0); Anion Gap 4 mmol/L (6-16); Blood Urea Nitrogen 42 mg/dL (8-24); Bun/Creatinine Ratio 37.5 (12.0-20.0); CO2, Blood 31 mmol/L (21-32); Calcium, Blood 9.2 mg/dL (8.5-10.1); Chloride, Blood 101 mmol/L (98-108); Creatinine, Blood 1.12 mg/dL (0.40-1.00); Glomerular Filtration Rate 51 (60-); Glucose, Blood 94 mg/dL (70-99); Magnesium, Blood 2.1 mg/dL (1.6-2.4); Phosphorus, Blood 2.5 mg/dL (2.5-4.9); Potassium, Blood 4.2 mmol/L (3.5-5.5); Sodium, Blood 136 mmol/L (136-145)
--- NOTE | 2020-01-02 07:24 | NUR ---
01/02/20 0630 MEDICATED FOR GENERAL PAIN PER MAY. REPOSITIONED Q 2 HOURS PT WILL ALLOW. ATTENDS BRIEF CHANGED PRN INCONTINENCE. VITALS STABLE. PT SLEPT ON AND OFF.
--- NOTE | 2020-01-02 18:10 | NUR ---
NO ACUTE CHANGES NOTED THIS SHIFT, WILL CONTINUE TO MONITOR AND REPORT TO ONCOMING RN
--- NOTE | 2020-01-03 06:48 | NUR ---
01/03/20 0610 PT SLEPT WELL LAST NIGHT. REPOSITIONED Q 2 HOURS AFTER BRIEF CHANGE FOR INCONTINENCE LAST NIGHT. GOOD ADONAY-CARE GIVEN. VITALS STABLE. MEDICATED ONCE FOR LEFT "RIB" PAIN. ENCOURAGED ORAL INTAKE BUT ONLY TOOK SIPS AT A TIME.
--- NOTE | 2020-01-03 17:02 | NUR ---
SHIFT SUMMARY NO ACUTE CHANGES T/O SHIFT. A&O X4, SOME COMPLAINTS OF PAIN WHEN PT IS MOVED BUT DID NOT WANT ANY PAIN MEDICATION. PT ON 3 L/MIN O2 VIA NC WITH WHEEZING AND COARSE CRACKLES NOTED T/O LUNGS. PT HAS BEEN REPOSITIONED EVERY 2 HRS AND WORKED WITH PT/OT TODAY. BOTH RECOMMENDED PT BE DISCHARGED WITH HOME HEALTH, PT LIVES WITH FAMILY. POSSIBLE DISCHARGE TOMORROW.
--- NOTE | 2020-01-04 07:26 | NUR ---
01/04/20 0630 PT MEDICATED TWICE FOR LEFT "RIB" PAIN. STILL WITH POOR APPETITE. RN ENCOURAGED ORAL FLUIDS AND FOOD OFFERED THROUGHTOUT SHIFT. VITALS STABLE. REPOSITIONED Q 2 HOURS SIDE TO SIDE.
--- NOTE | 2020-01-04 08:33 | NUR ---
PT TO IMAGING FOR CHEST XRAY.
--- NOTE | 2020-01-04 08:58 | NUR ---
SPOKE WITH PT SON DONNA THIS AM WHO AGREED TO COME IN FOR TRANSFER TRAINING TODAY AT 1300. MARISOL FROM PHYSICAL THERAPY NOTIFIED.
--- NOTE | 2020-01-04 15:46 | NUR ---
advised by physician pt transtioning to hospice care, family having discussion will return for follow up care.
--- NOTE | 2020-01-04 16:55 | NUR ---
SHIFT SUMMARY NO ACUTE CHANGES T/O SHIFT, A&OX4. PT DID MENTION SOME SOB THIS AM AND RECIEVED A BREATHING TREATMENT. PT IS ON 2 L/MIN OF 02 VIA NC AND MAINTAING AND SATURATION OF 91% OR GREATER. 2 L/MIN IS HER BASELINE AT HOME. PT IS NOT EATING MUCH TODAY, ENSURE HAS BEEN ENCOURAGED SEVERAL TIMES BUT PT TENDS NOT TO DRINK THEM. CINDY (PT) CAME AND WORKED WITH PT TODAY AND DID A TRAINING WITH THE SON AND DIL ON TRANSFER TECHNIQUES FOR WHEN THE PT RETURNS HOME WITH THEM. RAFFY ALSO HAD A MEETING WITH THE THREE OF THEM REGARDING HOME HOSPICE. BUMEX AND COREG WERE BOTH HELP THIS EVENING BECAUSE THE BP IS IN THE SBP IS IN THE LOW 90'S AFTER CHECKNG AND RECHECKING.
--- NOTE | 2020-01-05 04:52 | NUR ---
SHIFT SUMMARY PT HAS RESTED T/O SHIFT. REPOSITIONED FREQUENTLY T/O SHIFT OFTEN PER PT REQUEST TO ALLEVIATE LEFT RIB PAIN FROM FALL SHE SUSTAINED AT HOME PRIOR TO ADMIT. PT MEDICATED FOR ARELLANO X1 WITH EFFECT. PT RESP E/U ON 3L O2. O2 INCREASED FROM 2L TO 3L BY RT SATS WERE ONLY AT 89-90 ON 2L. BREATHING TREATMENTS PER ORDERS. NO OTHER ACUTE CHANGES IN ASSESSMENT. BED IN LOWEST POSITION, CALL LIGHT WITHIN REACH.
--- NOTE | 2020-01-05 18:26 | NUR ---
SHIFT SUMMARY PT AxOx 3-4. SHE HAS BEEN VERY SLEEPY TODAY. SLEPT THROUGH HER LUNCH. BREATHING COMFORTABLY ON 2L O2 VIA NC. PT BEDBOUND, AND REPOSITIONED Q2 OR TOLERATED. PT C/O PAIN T/O DAY. MEDICATED WITH TYLENOL. IV ACCESS DC'D TODAY D/T IV LEAKING. CHANGED MEDS TO ORAL. PLAN FOR DC HOME ON HOSPICE TOMORROW. O2 DELIEVERED BY AURELIANO. VITALS REVIEWED. BLOOD PRESSURE LOW AT AFTERNOON VITALS. COREG AND BUMEX HELD PER NURSING JUDGEMENT. DR AKBAR PUT IN ORDER FOR PADRON PRIOR TO DC. PT CURRENTLY RESTING IN BED WATCHING TV WITH CALL LIGHT IN HAND.
[2020-01-05] MEDS ORDERED: TUMS500 MG PO (18:35)
[2020-01-05] MEDS ORDERED: ACET325 PO (18:36)
[2020-01-05] MEDS ORDERED: PANT40 PO (18:36)
[2020-01-05] MEDS ORDERED: MIRALAX17 GM PO (18:37)
[2020-01-05] MEDS ORDERED: IPRAT-ALBUT 0.5-3 ML INH (18:38)
[2020-01-05] MEDS ORDERED: SENN187 PO (18:38)
[2020-01-05] MEDS ORDERED: VISBIOME PROBIOTIC PO (18:39)
[2020-01-05] MEDS ORDERED: CEFD300 PO (18:40)
[2020-01-05] MEDS ORDERED: MORP20L PO (18:41)
[2020-01-05] MEDS ORDERED: ONDA4ODT MM (18:42)
[2020-01-05 22:35] LABS: Source, Urine Catheter
[2020-01-05 22:37] LABS: Bilirubin, Urine Neg (Neg); Blood, Urine Neg (Neg); Glucose Qualitative, Urine Neg (Neg); Ketones, Urine Neg (Neg); Leukocyte Esterase, Urine Neg (Neg); Nitrite, Urine Neg (Neg); Protein, Urine Neg (Neg); Urobilinogen, Urine NORM (Normal)
[2020-01-05 22:44] LABS: Appearance, Urine Clear (Clear); Color, Urine Yellow (P-Yellow)
--- NOTE | 2020-01-06 03:43 | NUR ---
[employer] OPERATOR SUMMARY PT DENIED HAVING ANY PAIN AND STATED THAT SHE WANTED IT DOCUMENTED THAT SHE SAID THAT. PT WAS VERY PLEASANT AND COOPERATIVE W CARE DURING THE SHIFT. PT HAD ONE EPISODE OF INCONTINENT STOOL/URINE AND WAS CLEANED PRIOR TO HAVING A PADRON CATHETER PLACED PER ORDER. PT DENIED ANY SOB ON 3L NC AND SLEPT COMFORTABLY FOR MOST OF THE SHIFT W CALL LIGHT WITHIN REACH.
--- NOTE | 2020-01-06 10:05 | NUR ---
[facility] Comfort care visit - Spoke with RNs prior to visit. Pt asleep again but woke easily when I walked into the room. I asked pt if she was hurting or uncomfortable in any way and she said no. She is very near transfer time for discharge home with hospice. No family at bedside at the time of my visit.
--- NOTE | 2020-01-06 10:30 | NUR ---
DC SUMMARY PT SAFELY DISCHARGED VIA GURNEY BY [facility]. DC PACKET TRANSFERED WITH EMT. DC RAINBOW TROUT FARM MANAGER CALLED AND EMAILED SON TO UPDATE DC TIME AND DC INSTRUCTIONS. EXPECTING HOSPICE TO COME BY [facility]. PT GIVEN BED BATH AND CLEAN BRIEF PRIOR TO MIXER OPERATOR TABLETS. VITALS REVIEWED. DENIES PAIN OR NEEDS AT THIS TIME.
== END 2020-01-06 10:31 | disposition home health service (06) | DRG 177 ==
LOC: ER 06:46 → MEDS 08:06
PROVIDERS: Emergency Medicine; Family Medicine; ADMIT Internal Medicine Gastroenterology
PROC: 5A09457 Assistance with Respiratory Ventilation, 24-96 Consecutive Hours, Continuous Positive Airway Pressure (ICD-10-PCS; principal; 2019-12-31)
DX: J15.6 Pneumonia due to other Gram-negative bacteria (principal); G92 Toxic encephalopathy; J96.21 Acute and chronic respiratory failure with hypoxia; I13.0 Hypertensive heart and chronic kidney disease with heart failure and stage 1 through stage 4 chronic kidney disease, or unspecified chronic kidney disease; I50.32 Chronic diastolic (congestive) heart failure; J44.0 Chronic obstructive pulmonary disease with (acute) lower respiratory infection; I69.351 Hemiplegia and hemiparesis following cerebral infarction affecting right dominant side; J44.1 Chronic obstructive pulmonary disease with (acute) exacerbation; J98.11 Atelectasis; Z20.828 Contact with and (suspected) exposure to other viral communicable diseases; Z66 Do not resuscitate; G89.29 Other chronic pain; I27.20 Pulmonary hypertension, unspecified; Z99.81 Dependence on supplemental oxygen; F17.210 Nicotine dependence, cigarettes, uncomplicated; R62.7 Adult failure to thrive; Z74.01 Bed confinement status; S22.41XD Multiple fractures of ribs, right side, subsequent encounter for fracture with routine healing; N18.30 Chronic kidney disease, stage 3 unspecified; Z68.31 Body mass index [BMI] 31.0-31.9, adult
CPT/HCPCS: 36415; 36600; 71045; 71046; 80053; 80069; 81003; 82803; 83735; 83880; 85025; 93005; 93010; 94640; 94660; 94760; 96365; 96375; 97110; 97162; 97165; 97530; 97535; 99285-25; A9270; A9270-GY; J0456; J0696; J1650; J7050; J7512; U0003